=== PATIENT | male | born 2000 | race Caucasian/White ===

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

== ENCOUNTER 2020-02-05 08:30 | Emergency (ER) | payer SELFPAY ==
[2020-02-05] MEDS ORDERED: MORPHINE SULFATE 4 MG INJ ONE (09:39)
[2020-02-05] MEDS ORDERED: Zofran 4 MG/2 ML VIAL ONE (09:39)
[2020-02-05] MEDS ORDERED: XYLOCAINE HCl Viscous ONE (09:40)
[2020-02-05] MEDS ORDERED: Sodium Chloride 0.9% 1000 ML 1,000 ML ONE (09:41)
[2020-02-05] MEDS ORDERED: MAALOX ES 30 ML UNIT DOSE ONE (09:41)
--- NOTE | 2020-02-05 09:41 | ERPHSYRPT ---
- History of Present Illness Time Seen by Provider: 02/05/20 09:08 Historian: patient Exam Limitations: no limitations Patient Subjective Stated Complaint: PT states "I have had abdominal pain for the past couple of days and now I am vomiting." Triage Nursing Assessment: PTpresented alert and oriented X 3, skin pwd. Pt ambulates with an upright steady gait, able to speak in clear full sentences. PT not in any apparent respiratory distress. Physician History: 19 years old presented in the ER with chief complaint of epigastric pain off and on for the last 2 days, mild to moderate intensity without any significant ag gravating or relieving factors, nonradiating, associated with nausea and vomited x2 last episode prior to arrival. Denies any history of acid reflux. No fever or chills reported. Patient reports he feels dehydrated. Timing/Duration: day(s) (2), intermittent, worse Activities at Onset: rest Quality: burning, dullness Abdominal Pain Onset Location: epigastric Pain Radiation: no radiation Severity of Pain-Max: moderate Severity of Pain-Current: moderate Modifying Factors: Improves With: nothing Associated Symptoms: nausea, vomiting, No fever/chills Previous symptoms: no prior history Allergies/Adverse Reactions: bee pollen Allergy (Mild, Verified 12/23/18 10:10) Hives corn Allergy (Mild, Verified 12/23/18 10:10) Hives grass pollen Allergy (Mild, Verified 12/23/18 10:10) Hives venom-honey bee [bee venom (honey bee)] Allergy (Mild, Verified 12/23/18 10:10) Hives Hx Tetanus, Diphtheria Vaccination/Date Given: Yes Hx Influenza Vaccination/Date Given: No Hx Pneumococcal Vaccination/Date Given: No Immunizations Up to Date: Yes Travel Risk - International Travel Have you traveled outside of the country in past 3 weeks: No - Coronavirus Screening Are you exhibiting any of the following symptoms?: No Close contact with a COVID-19 positive Pt in past 14-21 Days: No - Review of Systems Constitutional: No Symptoms Eyes: No Symptoms Ears, Nose, & Throat: No Symptoms Respiratory: No Symptoms Cardiac: No Symptoms Abdominal/Gastrointestinal: Abdominal Pain, Nausea, Vomiting Genitourinary Symptoms: No Symptoms, Penile Discharge Skin: No Symptoms Neurological: No Symptoms Psychological: No Symptoms Endocrine: No Symptoms Hematologic/Lymphatic: No Symptoms Immunological/Allergic: No Symptoms - Past Medical History Pertinent Past Medical History: Yes Neurological History: No Pertinent History ENT History: No Pertinent History Cardiac History: No Pertinent History Respiratory History: No Pertinent History Endocrine Medical History: No Pertinent History Musculoskeletal History: No Pertinent History GI Medical History: No Pertinent History History: Other Psycho-Social History: No Pertinent History Male Reproductive Disorders: No Pertinent History Other Medical History: HX OF KIDENY STONES with basket removal,mono - Past Surgical History Past Surgical History: Yes Neuro Surgical History: No Pertinent History Cardiac: No Pertinent History Respiratory: No Pertinent History Gastrointestinal: No Pertinent History Genitourinary: Other Musculoskeletal: No Pertinent History Male Surgical History: No Pertinent History Other Surgical History: STENTS PLACED FOR KIDNEY STONES - Social History Smoking Status: Never smoker Exposure to second hand smoke: Yes Drug Use: none Patient Lives Alone: No - Nursing Vital Signs Nursing Vital Signs: Initial Vital Signs Temperature 98.3 F 02/05/20 08:38 Pulse Rate 72 02/05/20 08:38 Respiratory Rate 20 02/05/20 08:38 Blood Pressure 181/98 02/05/20 08:38 O2 Sat by Pulse Oximetry 100 02/05/20 08:38 Pain Scale Pain Intensity 4 - Physical Exam General Appearance: no apparent distress, alert Eye Exam: eyes nml inspection Ears, Nose, Throat Exam: normal ENT inspection, pharynx normal Neck Exam: normal inspection, non-tender, supple, full range of motion Respiratory Exam: normal breath sounds, lungs clear Cardiovascular Exam: regular rate/rhythm, normal heart sounds Gastrointestinal/Abdomen Exam: soft, normal bowel sounds, tenderness (In the epigastric/upper abdomen. Negative Gutierrez sign. Negative McBurney's point tenderness, Rovsing or obturator signs.) Back Exam: normal inspection, normal range of motion, No CVA tenderness Extremity Exam: normal inspection, normal range of motion Neurologic Exam: alert, oriented x 3, cooperative Skin Exam: normal color SpO2 Interpretation: normal SpO2: 100 O2 Delivery: Room Air Ordered Tests: Active Orders 24 hr Category Date Time Status IV Insertion STAT Care 02/05/20 09:29 Active NPO (ED) STAT Care 02/05/20 09:29 Active OBSTR/ACUTE ABDOMEN SERIES Stat Exams 02/05/20 09:29 Completed AMYLASE Stat Lab 02/05/20 09:50 Completed CBC W DIFF Stat Lab 02/05/20 09:50 Completed CMP Stat Lab 02/05/20 09:50 Completed LIPASE Stat Lab 02/05/20 09:50 Completed UA W/RFX UR CULTURE Stat Lab 02/05/20 09:29 Uncollected Medication Summary Discontinued Medications Generic Name Dose Route Start Last Admin Trade Name Hector PRN Reason Stop Dose Admin Al Hydrox/Mg Hydrox/Simethicone Confirm 02/05/20 09:41 Maalox Es 30 Ml Unit Dose Administered 02/05/20 09:42 Dose 30 ml .ROUTE .STK-MED ONE Sodium Chloride 1,000 mls @ 999 mls/hr 02/05/20 09:29 02/05/20 09:48 Sodium Chloride 0.9% 1000 Ml IV 02/05/20 10:29 999 mls/hr .Q1H1M STA Administration Sodium Chloride Confirm 02/05/20 09:41 Sodium Chloride 0.9% 1000 Ml Administered 02/05/20 09:42 Dose 1,000 mls @ ud .ROUTE .STK-MED ONE Lidocaine HCl Confirm 02/05/20 09:40 Xylocaine Hcl Viscous * Administered 02/05/20 09:41 Dose 15 ml .ROUTE .STK-MED ONE Magnesium Hydroxide 45 ml 02/05/20 09:29 02/05/20 09:48 Gi Cocktail 45 Ml (Maalox/Lidocaine) PO 02/05/20 09:30 45 ml STAT ONE Administration Morphine Sulfate 4 mg 02/05/20 09:29 02/05/20 09:48 Morphine Sulfate 4 Mg Inj IV 02/05/20 09:30 4 mg STAT ONE Administration Morphine Sulfate Confirm 02/05/20 09:39 Morphine Sulfate 4 Mg Inj Administered 02/05/20 09:40 Dose 4 mg .ROUTE .STK-MED ONE Ondansetron HCl 4 mg 02/05/20 09:29 02/05/20 09:49 Zofran 4 Mg/2 Ml Vial IV 02/05/20 09:30 4 mg STAT ONE Administration Ondansetron HCl Confirm 02/05/20 09:39 Zofran 4 Mg/2 Ml Vial Administered 02/05/20 09:40 Dose 4 mg .ROUTE .STK-MED ONE Lab/Rad Data: Laboratory Result Diagrams 02/05/20 09:50 02/05/20 09:50 Laboratory Results 02/05/20 02/05/20 Range/Units 09:50 09:50 WBC 8.2 (4.0-10.5) K/mm3 RBC 5.34 (4.1-5.6) M/mm3 Hgb 15.7 (12.5-18.0) gm/dl Hct 43.9 (42-50) % MCV 82.2 (78-100) fl MCH 29.4 (26-32) pg MCHC 35.8 (32-36) g/dl RDW 13.2 (11.5-14.0) % Plt Count 245 (150-450) K/mm3 MPV 10.3 (7.5-11.0) fl Gran % 87.7 H (36.0-66.0) % Eos # (Auto) 0.01 (0-0.5) Absolute Lymphs (auto) 0.77 L (1.0-4.6) Absolute Monos (auto) 0.22 (0.0-1.3) Lymphocytes % 9.4 L (24.0-44.0) % Monocytes % 2.7 (0.0-12.0) % Eosinophils % 0.1 (0.00-5.0) % Basophils % 0.1 (0.0-0.4) % Absolute Granulocytes 7.22 H (1.4-6.9) Basophils # 0.01 (0-0.4) Sodium 139 (137-145) mmol/L Potassium 4.2 (3.5-5.1) mmol/L Chloride 106 (98-107) mmol/L Carbon Dioxide 23 (22-30) mmol/L Anion Gap 13.4 (5-15) MEQ/L BUN 5 L (9-20) mg/dL Creatinine 0.66 (0.66-1.25) mg/dL Estimated GFR > 60.0 ML/MIN Glucose 110 H (74-106) mg/dL Calcium 10.0 (8.4-10.2) mg/dL Total Bilirubin 1.10 (0.2-1.3) mg/dL AST 33 (17-59) U/L ALT 31 (0-50) U/L Alkaline Phosphatase 121 (38-126) U/L Serum Total Protein 8.0 (6.3-8.2) g/dL Albumin 4.9 (3.5-5.0) g/dL Amylase 69 (30-110) U/L Lipase 55 (23-300) U/L - Progress Progress: improved, re-examined Progress Note: 02/05/20 10:42 19 years old is evaluated for epigastric pain and vomiting. He is given IV fluids and pain medication along with GI cocktail, on reevaluation his pain is c ompletely improved. No vomiting while in the ER. Unremarkable work-up including acute abdomen series. I believe patient has some element of acid reflux/gastritis, will give him Pepcid to go home. I do not think he needs any further work-up and is stable for discharge with outpatient follow-up. Counseled pt/family regarding: lab results, diagnosis, need for follow-up, rad results - Departure Departure Disposition: Home Clinical Impression: Epigastric pain Condition: Stable Critical Care Time: No Referrals: DEBBIE HARRIS MD [Primary Care Provider] - (1-2 days for reevaluation) Instructions: Acute Abdomen (Belly Pain), Adult (DC), Nausea and Vomiting, Adult (DC) Additional Instructions: Drink plenty of fluids. Take Tylenol as needed. Follow-up with primary care f or reevaluation. Return to ER for worsening Prescriptions: Famotidine 20 mg [Pepcid 20 MG] 20 mg PO BID #30 tablet
[2020-02-05] MEDS: MORPHINE SULFATE 4 MG INJ IV ONE (09:48)
[2020-02-05] MEDS: Sodium Chloride 0.9% 1000 ML 1,000 ML IV STA (09:48)
[2020-02-05] MEDS: GI COCKTAIL 45 ML (Maalox/Lidocaine) PO ONE (09:48)
[2020-02-05] MEDS: Zofran 4 MG/2 ML VIAL IV ONE (09:49)
[2020-02-05 10:07] LABS: Absolute Neutrophil Ct (ANC) 7.22 (1.4-6.9); BASOPHIL % 0.1 % (0.0-0.4); Basophil (Absolute #) 0.01 (0-0.4); Eosinophil % 0.1 % (0.00-5.0); Eosinophil (Absolute #) 0.01 (0-0.5); Hematocrit 43.9 % (42-50); Hemoglobin 15.7 gm/dl (12.5-18.0); Lymphocyte (Absolute #) 0.77 (1.0-4.6); Lymphocytes % 9.4 % (24.0-44.0); Mean Cell Volume 82.2 fl (78-100); Mean Corpuscular Hemoglobin 29.4 pg (26-32); Mean Corpuscular Hgb Concent. 35.8 g/dl (32-36); Mean Platelet Volume 10.3 fl (7.5-11.0); Monocyte (Absolute #) 0.22 (0.0-1.3); Monocytes % 2.7 % (0.0-12.0); Neutrophil % 87.7 % (36.0-66.0); Platelet Count 245 K/mm3 (150-450); Red Blood Count 5.34 M/mm3 (4.1-5.6); Red Cell Distribution Width 13.2 % (11.5-14.0); White Blood Count 8.2 K/mm3 (4.0-10.5)
[2020-02-05 10:22] LABS: ALBUMIN 4.9 g/dL (3.5-5.0); ALKALINE PHOSPHATASE 121 U/L (38-126); AMYLASE 69 U/L (30-110); ANION GAP 13.4 MEQ/L (5-15); BLOOD UREA NITROGEN 5 mg/dL (9-20); CHLORIDE 106 mmol/L (98-107); Carbon Dioxide 23 mmol/L (22-30); Creatinine 1 0.66 mg/dL (0.66-1.25); Glucose 110 mg/dL (74-106); LIPASE 55 U/L (23-300); Potassium 4.2 mmol/L (3.5-5.1); SGOT/AST 33 U/L (17-59); SGPT/ALT 31 U/L (0-50); SODIUM 139 mmol/L (137-145)
--- NOTE | 2020-02-05 10:24 | XRAY ---
Indication: Abdomen pain and vomiting. Comparison: Chest exam November 11, 2016. Two-view abdomen nonacute and nonobstructed. Solid organs and osseous structures unremarkable. Single PA chest again demonstrates normal heart, lungs, and bony thorax. Impression: Negative abdomen. Continued normal 1 view chest.
[2020-02-05 11:01] VITALS: BP 134/87; PULSE 69; O2SAT 98
== END 2020-02-05 11:50 | disposition home or self-care (01) ==
LOC: ED 08:30
DX: R10.13 Epigastric pain (principal); Z87.442 Personal history of urinary calculi
CPT/HCPCS: 36000; 36415; 74022; 80053; 82150; 83690; 85025; 96360; 96374; 96375; 99284; J2270; J2405; A9270-GY

== ENCOUNTER 2023-07-28 12:03 | Emergency (ER) | payer BC ==
--- NOTE | 2023-07-28 12:07 | ERPHSYRPT ---
- History of Present Illness Time Seen by Provider: 07/28/23 12:07 Historian: patient Exam Limitations: no limitations Physician History: This is a 23-year-old white male patient who presents with mild abdominal pain but multiple episodes of diarrheal stools and significant nausea. Last evening, the symptoms began relatively soon after patient consumed [employer] pizza and eating chicken from that restaurant. His brother ate pizza there and had milder symptoms. The brother did not eat the chicken. Patient has no fever. He has severe nausea but no vomiting. He was feeling fine before he ate that meal. He denies chest pain. He denies cough. He denies shortness of breath Timing/Duration: yesterday Severity of Pain-Max: none Severity of Pain-Current: none Modifying Factors: Improves With: nothing Associated Symptoms: diarrhea, loss of appetite, nausea, weakness, No chest pain, No fever/chills, No headache, No shortness of breath, No vomiting Previous symptoms: no prior history Allergies/Adverse Reactions: bee pollen Allergy (Mild, Verified 07/28/23 12:17) Hives corn Allergy (Mild, Verified 07/28/23 12:17) Hives grass pollen Allergy (Mild, Verified 07/28/23 12:17) Hives venom-honey bee [bee venom (honey bee)] Allergy (Mild, Verified 07/28/23 12:17) Hives Hx Tetanus, Diphtheria Vaccination/Date Given: Yes Hx Influenza Vaccination/Date Given: No Hx Pneumococcal Vaccination/Date Given: No Travel Risk - International Travel Have you traveled outside of the country in past 3 weeks: No - Coronavirus Screening Are you exhibiting any of the following symptoms?: Yes Symptoms: Vomiting/Diarrhea Close contact with a COVID-19 positive Pt in past 14-21 Days: No - Review of Systems Constitutional: Weakness Eyes: No Symptoms Ears, Nose, & Throat: No Symptoms Respiratory: No Symptoms Cardiac: No Symptoms Abdominal/Gastrointestinal: Nausea, Diarrhea, Appetite Changes Genitourinary Symptoms: No Symptoms Musculoskeletal: No Symptoms Skin: No Symptoms Neurological: No Symptoms Psychological: No Symptoms Endocrine: No Symptoms Hematologic/Lymphatic: No Symptoms Immunological/Allergic: No Symptoms All Other Systems: Reviewed and Negative - Past Medical History Pertinent Past Medical History: Yes Neurological History: No Pertinent History ENT History: No Pertinent History Cardiac History: No Pertinent History Respiratory History: No Pertinent History Endocrine Medical History: No Pertinent History Musculoskeletal History: No Pertinent History GI Medical History: No Pertinent History History: Other Psycho-Social History: No Pertinent History Male Reproductive Disorders: No Pertinent History Other Medical History: HX OF KIDENY STONES with basket removal,mono - Past Surgical History Past Surgical History: Yes Neuro Surgical History: No Pertinent History Cardiac: No Pertinent History Respiratory: No Pertinent History Gastrointestinal: No Pertinent History Genitourinary: Other Musculoskeletal: No Pertinent History Male Surgical History: No Pertinent History Other Surgical History: STENTS PLACED FOR KIDNEY STONES - Social History Smoking Status: Never smoker Exposure to second hand smoke: Yes Drug Use: none Patient Lives Alone: No - Nursing Vital Signs Nursing Vital Signs: Initial Vital Signs Pulse Rate 102 H 07/28/23 12:14 Respiratory Rate 19 07/28/23 12:14 Blood Pressure 172/101 07/28/23 12:14 O2 Sat by Pulse Oximetry 96 07/28/23 12:14 Pain Scale Pain Intensity 0 - Physical Exam General Appearance: no apparent distress, alert, anxiety Eye Exam: PERRL/EOMI, eyes nml inspection Ears, Nose, Throat Exam: normal ENT inspection, moist mucous membranes Neck Exam: normal inspection, non-tender, supple, full range of motion Respiratory Exam: normal breath sounds, lungs clear, airway intact, No chest tenderness, No respiratory distress Cardiovascular Exam: regular rate/rhythm, normal heart sounds, normal peripheral pulses Gastrointestinal/Abdomen Exam: soft, normal bowel sounds, No tenderness Rectal Exam: not done Back Exam: normal inspection, normal range of motion, No CVA tenderness, No vertebral tenderness Extremity Exam: normal inspection, normal range of motion, pelvis stable Neurologic Exam: alert, oriented x 3, cooperative, college and career counselor II-XII nml as tested, normal mood/affect, nml cerebellar function, nml station & gait, sensation nml Skin Exam: normal color, warm, dry Lymphatic Exam: No adenopathy SpO2 Interpretation: normal O2 Delivery: Room Air - Course Nursing assessment & vital signs reviewed: Yes Ordered Tests: Active Orders 24 hr Category Date Time Status IV Insertion STAT Care 07/28/23 12:23 Active AMYLASE Stat Lab 07/28/23 12:35 Completed CBC W DIFF Stat Lab 07/28/23 12:35 Completed CMP Stat Lab 07/28/23 12:35 Completed LIPASE Stat Lab 07/28/23 12:35 Completed MONO SCREEN Stat Lab 07/28/23 12:35 Completed UA W/RFX UR CULTURE Stat Lab 07/28/23 13:21 Completed Medication Summary Discontinued Medications Generic Name Dose Route Start Last Admin Trade Name Hector PRN Reason Stop Dose Admin Sodium Chloride 1,000 mls @ 999 mls/hr 07/28/23 12:23 07/28/23 13:40 Sodium Chloride 0.9% 1000 Ml IV 07/28/23 13:23 Infused .Q1H1M STA Infusion Sodium Chloride Confirm 07/28/23 12:35 Sodium Chloride 0.9% 1000 Ml Administered 07/28/23 12:36 Dose 1,000 mls @ ud .ROUTE .STK-MED ONE Ondansetron HCl 4 mg 07/28/23 12:23 07/28/23 12:38 Ondansetron Hcl 4 Mg/2 Ml Vial IV 07/28/23 12:24 4 mg STAT ONE Administration Ondansetron HCl Confirm 07/28/23 12:35 Ondansetron Hcl 4 Mg/2 Ml Vial Administered 07/28/23 12:36 Dose 4 mg .ROUTE .STK-MED ONE Pantoprazole Sodium 40 mg 07/28/23 12:23 07/28/23 12:41 Pantoprazole 40 Mg Vial IV 07/28/23 12:24 40 mg STAT ONE Administration Pantoprazole Sodium Confirm 07/28/23 12:35 Pantoprazole 40 Mg Vial Administered 07/28/23 12:36 Dose 40 mg IV .STK-MED ONE Lab/Rad Data: Laboratory Result Diagrams 07/28/23 12:35 07/28/23 12:35 Laboratory Results 07/28/23 07/28/23 07/28/23 Range/Units 13:21 12:35 12:35 WBC (4.0-10.5) x10^3/uL RBC (4.1-5.6) x10^6/uL Hgb (12.5-18.0) g/dL Hct (42-50) % MCV (78-100) fL MCH (26-32) pg MCHC (32-36) g/dL RDW (11.5-14.0) % Plt Count (150-450) x10^3/uL MPV (7.5-11.0) fL Gran % (36.0-66.0) % Immature Gran % (Auto) (0.00-0.4) % Nucleat RBC Rel Count (0.00-0.1) % Eos # (Auto) (0-0.5) x10^3/uL Immature Gran # (Auto) (0.00-0.03) x10^3u/L Absolute Lymphs (auto) (1.0-4.6) x10^3/uL Absolute Monos (auto) (0.0-1.3) x10^3/uL Absolute Nucleated RBC (0.00-0.01) x10^3u/L Lymphocytes % (24.0-44.0) % Monocytes % (0.0-12.0) % Eosinophils % (0.00-5.0) % Basophils % (0.0-0.4) % Absolute Granulocytes (1.4-6.9) x10^3/uL Basophils # (0-0.4) x10^3/uL Sodium (137-145) mmol/L Potassium (3.5-5.1) mmol/L Chloride (98-107) mmol/L Carbon Dioxide (22-30) mmol/L Anion Gap (5-15) MEQ/L BUN (9-20) mg/dL Creatinine (0.66-1.25) mg/dL Estimated GFR ML/MIN Glucose (74-106) mg/dL Calcium (8.4-10.2) mg/dL Total Bilirubin (0.2-1.3) mg/dL AST (17-59) U/L ALT (0-50) U/L Alkaline Phosphatase (38-126) U/L Serum Total Protein (6.3-8.2) g/dL Albumin (3.5-5.0) g/dL Amylase (30-110) U/L Lipase (23-300) U/L Urine Color Dark Yellow (Yellow) Urine Appearance Turbid A (Clear) Urine pH 5.5 (4.6-8.0) Ur Specific [place] >=1.030 A (1.005-1.030) Urine Protein Trace A (Negative) Urine Glucose (UA) Negative (Negative) mg/dL Urine Ketones Negative (Negative) Urine Blood Negative (Negative) Urine Nitrite Negative (Negative) Urine Bilirubin Negative (Negative) Urine Urobilinogen 0.2 (0.2) mg/dL Ur Leukocyte Esterase Negative (Negative) U Hyaline Cast (Auto) 3-5 A (0-2) /LPF Urine Microscopic RBC 3-5 (0-5) /HPF Urine Microscopic WBC 0-2 (0-5) /HPF Ur Epithelial Cells None Seen (None Seen) /HPF Amorphous Crystals Few A (None Seen) /HPF Urine Bacteria None Seen (None Seen) /HPF Urine Culture Reflexed NO (NO) Monoscreen NEGATIVE (NEGATIVE) Influenza Type A Ag NEGATIVE (NEGATIVE) Influenza Type B Ag NEGATIVE (NEGATIVE) RSV (PCR) NEGATIVE (NEGATIVE) SARS-CoV-2 (PCR) NEGATIVE (NEGATIVE) Slides for Path Review 07/28/23 07/28/23 Range/Units 12:35 12:35 WBC 9.4 (4.0-10.5) x10^3/uL RBC 5.80 H (4.1-5.6) x10^6/uL Hgb 17.2 (12.5-18.0) g/dL Hct 49.4 (42-50) % MCV 85.2 (78-100) fL MCH 29.7 (26-32) pg MCHC 34.8 (32-36) g/dL RDW 13.5 (11.5-14.0) % Plt Count 223 (150-450) x10^3/uL MPV 9.9 (7.5-11.0) fL Gran % 89.0 H (36.0-66.0) % Immature Gran % (Auto) 0.4 (0.00-0.4) % Nucleat RBC Rel Count 0.0 (0.00-0.1) % Eos # (Auto) 0 (0-0.5) x10^3/uL Immature Gran # (Auto) 0.04 H (0.00-0.03) x10^3u/L Absolute Lymphs (auto) 0.29 L (1.0-4.6) x10^3/uL Absolute Monos (auto) 0.69 (0.0-1.3) x10^3/uL Absolute Nucleated RBC 0.00 (0.00-0.01) x10^3u/L Lymphocytes % 3.1 L (24.0-44.0) % Monocytes % 7.3 (0.0-12.0) % Eosinophils % 0.0 (0.00-5.0) % Basophils % 0.2 (0.0-0.4) % Absolute Granulocytes 8.39 H (1.4-6.9) x10^3/uL Basophils # 0.02 (0-0.4) x10^3/uL Sodium 141 (137-145) mmol/L Potassium 3.7 (3.5-5.1) mmol/L Chloride 103 (98-107) mmol/L Carbon Dioxide 23 (22-30) mmol/L Anion Gap 17.7 H (5-15) MEQ/L BUN 15 (9-20) mg/dL Creatinine 0.83 (0.66-1.25) mg/dL Estimated GFR 126.1 ML/MIN Glucose 117 H (74-106) mg/dL Calcium 9.6 (8.4-10.2) mg/dL Total Bilirubin 1.80 H (0.2-1.3) mg/dL AST 22 (17-59) U/L ALT 42 (0-50) U/L Alkaline Phosphatase 74 (38-126) U/L Serum Total Protein 8.0 (6.3-8.2) g/dL Albumin 5.1 H (3.5-5.0) g/dL Amylase 69 (30-110) U/L Lipase 55 (23-300) U/L Urine Color (Yellow) Urine Appearance (Clear) Urine pH (4.6-8.0) Ur Specific [place] (1.005-1.030) Urine Protein (Negative) Urine Glucose (UA) (Negative) mg/dL Urine Ketones (Negative) Urine Blood (Negative) Urine Nitrite (Negative) Urine Bilirubin (Negative) Urine Urobilinogen (0.2) mg/dL Ur Leukocyte Esterase (Negative) U Hyaline Cast (Auto) (0-2) /LPF Urine Microscopic RBC (0-5) /HPF Urine Microscopic WBC (0-5) /HPF Ur Epithelial Cells (None Seen) /HPF Amorphous Crystals (None Seen) /HPF Urine Bacteria (None Seen) /HPF Urine Culture Reflexed (NO) Monoscreen (NEGATIVE) Influenza Type A Ag (NEGATIVE) Influenza Type B Ag (NEGATIVE) RSV (PCR) (NEGATIVE) SARS-CoV-2 (PCR) (NEGATIVE) Slides for Path Review YES - Progress Progress: improved, re-examined Progress Note: 07/28/23 12:42 This patient's medical issue is 1 of moderate complexity. The level complexity in the workup performed is based on review of the patient's past medical history, review of the patient's medication list, review of patient's drug allergy list, history present illness and physical findings on examination. The workup includes placement of an intravenous line, infusion of normal saline solution, infusion of Zofran 4 mg intravenously, obtaining a urinalysis, CBC, CMP, amylase, lipase and obtaining mono test and viral swabs. 07/28/23 15:07 I reviewed and interpreted the patient's laboratory data results. He has no acute, emergent laboratory data results. Clinically, patient is feeling much better. Counseled pt/family regarding: lab results, diagnosis, need for follow-up Medical Desision Making - Diagnostic Testing Diagnostic test were ordered, analyzed, and reviewed by me: Yes - Risk of complications The pt has a mod risk of morbidity or mortality based on: Need for prescription drug management - Departure Departure Disposition: Home Clinical Impression: Diarrhea, Nausea Condition: Stable Critical Care Time: No Additional Instructions: Start off with clear liquid diet. Drink plenty of clear liquids before advancing your diet. Follow-up with your primary care provider for further evaluation management. Prescriptions: Ondansetron ODT 4 MG [Zofran Odt 4 mg] 4 mg PO Q6H PRN PRN #10 tablet PRN Reason: Vomiting
[2023-07-28 12:22] VITALS: TEMP 97.6
[2023-07-28] MEDS ORDERED: PROTONIX 40 MG IV IV ONE ×2 (12:23→12:35)
[2023-07-28] MEDS ORDERED: Zofran 4 MG/2 ML VIAL IV ONE (12:23)
[2023-07-28] MEDS ORDERED: Sodium Chloride 0.9% 1000 ML 1,000 ML IV STA (12:23)
[2023-07-28] MEDS ORDERED: Zofran 4 MG/2 ML VIAL ONE (12:35)
[2023-07-28] MEDS ORDERED: Sodium Chloride 0.9% 1000 ML 1,000 ML ONE (12:35)
[2023-07-28 12:43] LABS: Absolute Neutrophil Ct (ANC) 8.39 x10^3/uL (1.4-6.9); BASOPHIL % 0.2 % (0.0-0.4); Basophil (Absolute #) 0.02 x10^3/uL (0-0.4); Eosinophil (Absolute #) 0 x10^3/uL (0-0.5); Hematocrit 49.4 % (42-50); Hemoglobin 17.2 g/dL (12.5-18.0); IMMATURE GRAN # 0.04 x10^3u/L (0.00-0.03); IMMATURE GRAN % 0.4 % (0.00-0.4); Lymphocyte (Absolute #) 0.29 x10^3/uL (1.0-4.6); Lymphocytes % 3.1 % (24.0-44.0); Mean Cell Volume 85.2 fL (78-100); Mean Corpuscular Hemoglobin 29.7 pg (26-32); Mean Corpuscular Hgb Concent. 34.8 g/dL (32-36); Mean Platelet Volume 9.9 fL (7.5-11.0); Monocyte (Absolute #) 0.69 x10^3/uL (0.0-1.3); Monocytes % 7.3 % (0.0-12.0); Platelet Count 223 x10^3/uL (150-450); Red Cell Distribution Width 13.5 % (11.5-14.0); White Blood Count 9.4 x10^3/uL (4.0-10.5)
[2023-07-28 12:55] LABS: ALBUMIN 5.1 g/dL (3.5-5.0); ANION GAP 17.7 MEQ/L (5-15); BILIRUBIN,TOTAL 1.8 mg/dL (0.2-1.3); Calcium 9.6 mg/dL (8.4-10.2); Creatinine 1 0.83 mg/dL (0.66-1.25); EST GLOMERULAR FILTRATION RATE 126.1 ML/MIN; Potassium 3.7 mmol/L (3.5-5.1)
[2023-07-28 13:20] LABS: INFLUENZA A NEGATIVE (NEGATIVE); INFLUENZA B NEGATIVE (NEGATIVE); RESPIRATORY SYNCTIAL VIRUS NEGATIVE (NEGATIVE); SARS-CoV-2 Xpert Express NEGATIVE (NEGATIVE)
[2023-07-28 13:34] LABS: Appearance Turbid (Clear); Bacteria None Seen /HPF (None Seen); Bilirubin Negative (Negative); Blood Negative (Negative); Epithelial Cells None Seen /HPF (None Seen); Glucose, Urine Negative (Negative); Ketones Negative (Negative); Leukocyte Esterase Negative (Negative); Nitrite Negative (Negative); Ph 5.5 (4.6-8.0); Protein,Urine Dip Trace (Negative); Specific Gravity >=1.030 (1.005-1.030); Urobilinogen 0.2 mg/dL (0.2); WBC 0-2 /HPF (0-5)
[2023-07-28 13:45] VITALS: BP 153/87; PULSE 94; RESP 18; O2SAT 96
[2023-07-28 13:58] LABS: ADD URINE CULTURE? NO (NO); Amourphous Crystal Few /HPF (None Seen)
[2023-07-28 14:48] LABS: Slide Review 1 YES
== END 2023-07-28 15:17 | disposition home or self-care (01) ==
LOC: ED 12:03
DX: R19.7 Diarrhea, unspecified (principal); R11.0 Nausea; R10.9 Unspecified abdominal pain
CPT/HCPCS: 0241U; 36000; 36415; 80053; 81001; 82150; 83690; 85025; 86308; 96374; 96375; 99283; J2405